=== PATIENT | female | born 1955 | race Caucasian/White ===

== ENCOUNTER 2025-06-15 15:40 | Emergency (ER) | payer MEDICARE, OTHER, SELFPAY ==
[2025-06-15 15:45] VITALS: BP 131/69
[2025-06-15 15:56] VITALS: BP 118/73
[2025-06-15 16:00] VITALS: BP 115/66
--- NOTE | 2025-06-15 16:04 | ED.GENMED ---
History of Present Illness
General
Chief Complaint: Heart Rate Problem
Source: patient
Exam Limitations: none
Time Seen by Provider: 06/15/25 16:03
Nursing documentation reviewed up to this point in time: agreed with
History of Present Illness
History of Present Illness:
Note:
CHIEF COMPLAINT(S)
Palpitations and irregular heartbeats.
HISTORY OF PRESENT ILLNESS
The patient is a 69-year-old female who presents with concerns of heart palpitations, described as feeling extra or skipped beats. The onset of these sensations was recent and is suspected by the patient to be associated with caffeine consumption.
She mentions previously experiencing premature ventricular contractions (PVCs) and atrial premature complexes (PACs). The patient notes a history of chemotherapy treatment ending in 1998. She is currently not on any prescribed medications except for
dietary supplements. Despite the irregular heartbeat sensations, no acute symptoms or immediate distress were reported during the consultation.
MEDICATIONS
The patient reports taking dietary supplements but no current prescribed medications.
PHYSICAL EXAM
General: Alert, no acute distress.
Skin: Warm, dry.
Head: Normocephalic, atraumatic.
Neck: Supple, trachea midline.
Eye Ears, Nose, Mouth, and Throat: Oral mucosa moist.
Cardiovascular: Normal peripheral perfusion, No edema.
Respiratory: Respirations are non-labored.
Gastrointestinal: Abdomen nondistended.
Back: Normal range of motion, Normal alignment.
Musculoskeletal: Normal range of motion, normal strength.
Neurological: Alert and oriented to person, place, time, and situation, No focal neurological deficit observed.
Psychiatric: Cooperative, appropriate mood & affect.
PLAN
Proceed with electrolyte testing to rule out any imbalances that may contribute to the cardiac symptoms. Continuation of monitoring is recommended, with potential follow-up discussions on reducing caffeine intake to assess its impact on heart rhythm.
DIFFERENTIAL DIAGNOSIS
The Differential Diagnosis includes, in no particular order and is not limited to:
1. Premature ventricular contractions (PVCs)
2. Premature atrial contractions (PACs)
3. Caffeine-induced palpitations
4. Arrhythmia
5. Electrolyte imbalance
6. Anxiety-related palpitations
7. Cardiomyopathy
8. Hyperthyroidism
9. Ischemic heart disease
10. Heart failure
SUMMARY OF ENCOUNTER
The patient, a 69-year-old female, presented with heart palpitations described as extra or skipped beats. She reported a recent increase in these sensations, which she associates with caffeine consumption. The patient has a history of premature
ventricular contractions (PVCs) and atrial premature complexes (PACs) but is not undergoing any prescribed medication therapy. She completed chemotherapy in 1998. In the emergency department, an EKG was performed, showing sinus bradycardia and
premature atrial complexes. The decision was made to continue outpatient management given the absence of acute distress and the potential caffeine influence.
DISPOSITION
Discharge with instructions for follow-up with primary care and return precautions.
ASSESSMENT
The patient experienced heart palpitations, diagnosed as premature atrial contractions. No signs suggestive of pulmonary embolism (PE) or acute coronary syndrome (ACS) were found.
PLAN
The patient is to monitor symptoms and consider reducing caffeine intake. Follow-up with primary care to further assess heart rhythm and determine if additional management is necessary based on symptom progression.
INDEPENDENT REVIEW OF LABS AND INTERPRETATION OF TESTS
My independent review of EKG is sinus bradycardia with premature atrial complexes, no signs of ischemia.
PATIENT EDUCATION AND COUNSELING
The patient was advised on potential impacts of caffeine on heart rhythm and encouraged to moderate intake. Return precautions were reviewed should symptoms worsen or new symptoms arise.
FOLLOW-UP INSTRUCTIONS
The patient is advised to follow up with her primary care physician to monitor heart palpitations and evaluate the need for further intervention if symptoms increase.
MEDICAL DECISION MAKING
-Complexity of Data Reviewed: Chronic conditions affecting care include a history of chemotherapy ending in 1998.
Premature ventricular contractions, premature atrial contractions, caffeine-induced palpitations, arrhythmia, electrolyte imbalance, anxiety-related palpitations, cardiomyopathy, hyperthyroidism, ischemic heart disease, heart failure.
-Data:
Category 1
My independent interpretation of EKG indicates sinus bradycardia with premature atrial complexes and no signs of ischemia.
-Risk:
Consideration of Admission/Observation: Escalation of care including admission/observation was considered given the complexity and risk of the patients presenting complaint, exam findings, and/or their underlying comorbidities. However, ultimately I
feel the patient is safe for outpatient management with close follow-up. Reasoning: Work-up reassuring, does not reveal any acute life/organ threatening processes, patients symptoms well controlled upon reevaluation, reexamination is reassuring,
vitals are stable, patient agreeable with discharge, reliable for follow-up.
DIAGNOSIS
-Premature Atrial Contractions (ICD-10: I49.1)
-Heart Palpitations (ICD-10: R00.2)
Phy Exam
Physical Exam
Physical Exam:
.
Course
Orders/Labs/Results
Orders:
Orders
06/15/25 15:48
Electrocardiogram (*1) Urgent
Reason for Study: Palpitations
EKG- Treatment ONCE
06/15/25 16:39
Complete Blood Count/With Diff Urgent
Comprehensive Metabolic Panel Urgent
Magnesium Urgent
TSH Reflex To Free T4 Urgent
Abnormal Lab Results
06/15/25
16:39
RBC 3.90 L 10^6/uL
(4.20-5.40)
Hgb 11.5 L g/dL
(12.0-16.0)
Hct 33.7 L %
(37.0-47.0)
MPV 10.6 H fL
(7.4-10.4)
Carbon Dioxide 32 H mmol/L
(22-30)
BUN 21 H mg/dl
(7-17)
Creatinine 1.1 H mg/dL
(0.6-1.0)
Glucose 115 H mg/dl
(70-99)
Total Protein 6.0 L g/dl
(6.3-8.2)
06/15/25 16:39
06/15/25 16:39
Vital Signs
Initial and Last Documented VS:
Initial Vital Signs
Temp Pulse Resp BP Pulse Ox
98.9 F 66 18 131/69 98
06/15/25 15:45 06/15/25 15:45 06/15/25 15:45 06/15/25 15:45 06/15/25 15:45
Last Documented Vital Signs
Temp Pulse Resp BP Pulse Ox
98.8 F 59 17 115/66 98
06/15/25 16:30 06/15/25 16:30 06/15/25 16:30 06/15/25 16:30 06/15/25 16:31
*Pulse Oximetry
SaO2: 98
Oxygen Mode of Delivery: Room air
Patient hypoxic: no
*Critical Care Note
Total Time (30-74mins, 75-104mins- exclusive of procedures): Not Applicable
ED Attending Note
-
Portions of this chart may have been created with voice recognition software.� Occasional wrong word or��sound alike� substitutions may have occurred due to the inherent limitations of voice recognition software.
Discharge Plan
Departure
Patient Disposition: Home (Routine Discharge)
Date of Disposition: 06/15/25
Time of Disposition: 18:53
Patient with high blood pressure during this ER visit?: No
Condition: Good
Discharge Problem:
Atrial premature beats, Palpitation
Instructions: Palpitations (DC)
Referrals:
PRIVATE,PHYSICIAN [Family Provider, Internal Medicine]
Activity Restrictions/Additional Instructions:
Return for any concerns. Follow up with primary care.
Interventions
Interventions:
*Risk Screen - Suicide Last Done: 06/15/25 15:45
*General Assessment Last Done: 06/15/25 15:45
*Neglect/Abuse Screening Last Done: 06/15/25 15:45
*ED- Fall Risk Assessment Last Done: 06/15/25 15:45
*ED COVID-19 Vaccine History Last Done: 06/15/25 15:45
*ED Influenza Vaccine History Last Done: 06/15/25 15:45
ED- Cardiac Assessment Last Done: 06/15/25 16:31
ED- Pulmonary Assessment Last Done: 06/15/25 16:31
Discharge Date and Time
Print Language: [place]
[2025-06-15 16:29] VITALS: BMI 25.9
[2025-06-15 16:30] VITALS: BP 115/66
[2025-06-15 16:48] LABS: Hematocrit 33.7 % (37.0-47.0); Hemoglobin 11.5 g/dL (12.0-16.0); Mean Corp Hgb Conc. 34.1 g/dL (33.0-37.0); Mean Corpuscular Volume 86.4 fL (81.0-99.0); Nucleated Red Blood Cells % 0 %; Platelet Count 268 10^3/uL (130-400); Red Cell Dist. Width 13.4 % (11.5-14.5)
[2025-06-15 17:15] LABS: ALT (SGPT) 15 U/L (0-35); AST (SGOT) 19 U/L (14-36); Albumin 3.9 g/dl (3.5-5.0); Alkaline Phosphatase 73 U/L (38-126); Blood Urea Nitrogen 21 mg/dl (7-17); Calcium 9.2 mg/dl (8.4-10.2); Carbon Dioxide 32 mmol/L (22-30); Chloride 104 mmol/L (98-107); Estimated Creatinine Clearance 44 ml/min; Glucose 115 mg/dl (70-99); Magnesium 2.3 mg/dl (1.6-2.3); Potassium 3.7 mmol/L (3.5-5.1); Sodium 139 mmol/L (135-145); Total Protein 6.0 g/dl (6.3-8.2); eGFR 53.72
[2025-06-15 19:05] VITALS: BP 143/97
[2025-06-15 19:19] VITALS: BP 143/97
== END 2025-06-15 19:22 | disposition home or self-care (01) ==
LOC: EMR 15:40
PROVIDERS: Emergency Medicine; EMERGENCY PHYSICIAN Emergency Medicine
DX: I49.1 Atrial premature depolarization (principal); R00.1 Bradycardia, unspecified
CPT/HCPCS: 99284; 80053; 83735; 84443; 85025; 93005